=== PATIENT | male | born 1995 | race Caucasian/White ===

== ENCOUNTER 2019-07-04 19:56 | Emergency (ER) | payer BC, MEDICAID, OTHER ==
[2019-07-04 20:51] VITALS: BP 123/69; PULSE 106
--- NOTE | 2019-07-04 21:23 | EDM.PDOC ---
ED HPI GENERAL MEDICAL PROBLEM - General Chief Complaint: Respiratory Problem Stated Complaint: COUGH,FEVER,CHILLS Time Seen by Provider: 07/04/19 21:00 Source of Information: Reports: Patient, Family (significant other) History Limitations: Reports: No Limitations - History of Present Illness INITIAL COMMENTS - FREE TEXT/NARRATIVE: Alert 23 yo male presents to ER for cough, fever and lots of mucus for the last 2 weeks. Patient has had chills and sweats. He has not taken his temperature. patient took Ibuprofen last around 4:30 this am. Patient denies sore throat, headache, sinus pressure or rashes. He denies urinary symptoms or concerns. Patient's significant other and son have had a dry cough over the last week. Patient has had coughing fits at night and unable to sleep and cough is wet and very productive. Patient denies history of asthma or pneumonia. denies pain Pain Score (Numeric/FACES): 0 - Related Data Allergies Allergy/AdvReac Type Severity Reaction Status Date / Time venom-honey bee Allergy Hives Verified 07/04/19 21:18 [bee venom (honey bee)] Home Meds: Home Meds Doxycycline Hyclate 100 mg PO BID 10 Days #20 capsule 07/04/19 [Rx] Past Medical History - Past Health History Medical/Surgical History: Denies Medical/Surgical History Dermatologic History: Reports: Other (See Below) Other Dermatologic History: cuts on toes ED ROS GENERAL - Review of Systems Review Of Systems: ROS reveals no pertinent complaints other than HPI. ED EXAM, GENERAL - Physical Exam Exam: See Below Exam Limited By: No Limitations General Appearance: Alert, WD/WN, No Apparent Distress Eye Exam: Bilateral Eye: EOMI, PERRL Ears: Normal External Exam, Normal Canal, Hearing Grossly Normal, Normal TMs Nose: Normal Inspection, Normal Mucosa, No Blood, Nasal Drainage Throat/Mouth: Normal Inspection, Normal Lips, Normal Teeth, Normal Gums, Normal Oropharynx, Normal Voice, No Airway Compromise, Other (mucus noted in the posterior oral phayrnx ) Head: Normocephalic Neck: Normal Inspection, Supple, Non-Tender, Full Range of Motion Respiratory/Chest: No Respiratory Distress, Lungs Clear, Normal Breath Sounds, No Accessory Muscle Use Cardiovascular: Normal Peripheral Pulses, Regular Rate, Rhythm, No Edema, No Gallop, Tachycardia GI/Abdominal: Normal Bowel Sounds, Soft, Non-Tender Back Exam: Normal Inspection, Full Range of Motion. No: CVA Tenderness (R), CVA Tenderness (L) Extremities: Normal Inspection, Normal Range of Motion, Non-Tender, Normal Capillary Refill, No Pedal Edema Neurological: Alert, Oriented, CN II-XII Intact, Normal Cognition, Normal Gait, Normal Reflexes, No Motor/Sensory Deficits Psychiatric: Normal Affect, Normal Mood Skin Exam: Warm, Dry, Intact, Normal Color, No Rash Course - Vital Signs Last Recorded V/S: Last Vital Signs Temp 38.3 C H 07/04/19 21: Pulse 106 H 07/04/19 21:19 Resp 16 07/04/19 21: BP 123/69 07/04/19 21: Pulse Ox 95 07/04/19 21:19 - Radiology Interpretation Free Text/Narrative:: CXR PA/LAT: Left Lower Lobe Infiltrate noted on AP and Lateral views. Departure - Departure Time of Disposition: 21:51 Disposition: Home, Self-Care 01 Clinical Impression: Pneumonia of left lower lobe due to infectious organism - Discharge Information Prescriptions: Doxycycline Hyclate 100 mg PO BID 10 Days #20 capsule Instructions: Community-Acquired Pneumonia, Adult, Doxycycline tablets or capsules Referrals: PCP,None [Primary Care Provider] - Forms: ED Department Discharge Additional Instructions: 1. Doxycycline 100mg every am and pm x 10days for pneumonia. 2. Increase fluid intake, rest and sleep. 3. Call PCP for recheck in 72 hours if symptoms not improving recheck in 3-4 weeks to ensure resolved. 4. PCP office number given for follow recommendations.
--- NOTE | 2019-07-04 21:50 | CRLCR ---
INDICATION: Fever and cough TECHNIQUE: Chest radiograph 2 views COMPARISON: None FINDINGS: Mediastinum: The mediastinum is normal in appearance. The heart silhouette is normal in size and morphology. Lung: Small consolidation is seen in the lateral left lower lobe with small left pleural effusion. A small focal consolidation is present in the lingula measuring 1.8 cm. No pneumothorax is identified. Bone and Soft tissue: Unremarkable for age. IMPRESSION: 1. Small consolidation is seen in the lateral left lower lobe with small left pleural effusion. A small focal consolidation is present in the lingula measuring 1.8 cm. Findings are likely due to pneumonia. Dictated by Dae Can MD @ 07/04/2019 9:49:10 PM Dictated by: Dae Can MD @ 07/04/2019 21:49:14 (Electronically Signed)
== END 2019-07-04 22:11 | disposition home or self-care (01) ==
LOC: JP.ED 19:56
DX: J18.1 Lobar pneumonia, unspecified organism (principal); Z91.030 Bee allergy status
CPT/HCPCS: 71046; 99283

== ENCOUNTER 2021-09-17 08:36 | Emergency (ER) | payer BC, OTHER ==
[2021-09-17 08:53] VITALS: BP 129/82; PULSE 89
[2021-09-17] MEDS ORDERED: Aluminum Hydroxide/Magnesium Hydroxide/Simethicone Susp 30 ML Cup PO STA (09:03)
[2021-09-17] MEDS ORDERED: Famotidine 20 MG Tab PO ONE (09:03)
--- NOTE | 2021-09-17 09:04 | EDM.PDOC ---
ED HPI GENERAL MEDICAL PROBLEM - General Chief Complaint: Gastrointestinal Problem Stated Complaint: THREW UP THIS MORNING WITH BLOOD IN IT Time Seen by Provider: 09/17/21 08:45 Source of Information: Reports: Patient, Old Records, RN History Limitations: Reports: No Limitations - History of Present Illness INITIAL COMMENTS - FREE TEXT/NARRATIVE: 25 yo male presents after a single emesis this AM that appeared to contain a fair amt of blood. He denies any black or bloody stools. No pHx of peptic ulcer dz or family hx of same. He drinks moderately, but not heavily. Said he had 2 drinks only last night. He smokes only occasionally and does not use NSAID's. He feels fine now and is not dizzy with standing. He is not aware of any abdominal pain. He has not eaten or drank anything red in the last 12 hrs or so. Onset: Today, Sudden Onset Date: 09/17/21 Duration: Minutes:, Resolved Prior to Arrival Location: Reports: Abdomen Quality: Reports: Other (no pain) Improves with: Reports: Other (? time, feels fine now) Worsens with: Reports: Other (unknown) Context: Reports: Other (See HPI) Associated Symptoms: Reports: Nausea/Vomiting (now resolved) Treatments INVESTIGATION SPECIALIST: Reports: Other (see below) (none) - Related Data Allergies Allergy/AdvReac Type Severity Reaction Status Date / Time venom-honey bee Allergy Hives Verified 07/04/19 21:18 [bee venom (honey bee)] Home Meds: Home Meds Famotidine 20 mg PO BID #60 tablet 09/17/21 [Rx] Past Medical History - Past Health History Medical/Surgical History: Denies Medical/Surgical History Musculoskeletal History: Reports: Fracture, Other (See Below) Other Musculoskeletal History: left wrist fracture Neurological History: Reports: Concussion Dermatologic History: Reports: Other (See Below) Other Dermatologic History: cuts on toes - Past Surgical History HEENT Surgical History: Reports: Myringotomy w Tube(s), Tonsillectomy Social & Family History - Tobacco Use Tobacco Use Status *Q: Never Tobacco User - Caffeine Use Caffeine Use: Reports: Soda - Recreational Drug Use Recreational Drug Use: No ED ROS GENERAL - Review of Systems Review Of Systems: See Below Constitutional: Reports: No Symptoms HEENT: Reports: No Symptoms Respiratory: Reports: No Symptoms Cardiovascular: Reports: No Symptoms. Denies: Lightheadedness GI/Abdominal: Reports: Hematemesis, Nausea, Vomiting (x 1). Denies: Abdominal Pain, Black Stool, Bloody Stool : Reports: No Symptoms Musculoskeletal: Reports: No Symptoms Skin: Reports: No Symptoms ED EXAM, GI/ABD - Physical Exam Exam: See Below Exam Limited By: No Limitations General Appearance: Alert, WD/WN, No Apparent Distress Eyes: Bilateral: Normal Appearance Ears: Normal External Exam, Normal Canal, Hearing Grossly Normal Nose: Normal Inspection, No Blood Throat/Mouth: Normal Inspection, Normal Lips, Normal Oropharynx, Normal Voice, No Airway Compromise Head: Atraumatic, Normocephalic Neck: Normal Inspection Respiratory/Chest: No Respiratory Distress, Lungs Clear, Normal Breath Sounds, No Accessory Muscle Use Cardiovascular: Regular Rate, Rhythm, No Edema. No: Tachycardia GI/Abdominal Exam: Normal Bowel Sounds, Soft, Non-Tender, No Distention. No: Distended, Tender Back Exam: Normal Inspection. No: CVA Tenderness (R), CVA Tenderness (L) Extremities: Normal Inspection, Normal Range of Motion, Non-Tender, No Pedal Edema. No: Pedal Edema Neurological: Alert, Oriented, CN II-XII Intact, Normal Cognition, No Motor/Sensory Deficits Psychiatric: Normal Affect, Normal Mood Skin Exam: Warm, Dry, Intact, Normal Color, No Rash Course - Vital Signs Last Recorded V/S: Last Vital Signs Temp 36.7 C 09/17/21 08:50 Pulse 89 09/17/21 08:50 Resp 16 09/17/21 08:50 BP 129/82 09/17/21 08:50 Pulse Ox 98 09/17/21 08:50 - Orders/Labs/Meds Orders: Active Orders 24 hr Category Date Time Status Orthostatic Vital Signs [RC] ASDIRECTED Care 09/17/21 08:55 Active Labs: Laboratory Tests 09/17/21 09/17/21 Range/Units 08:55 09:00 WBC 7.3 (4.5-11.0) K/uL RBC 5.39 (4.30-5.90) M/uL Hgb 15.8 H (12.0-15.0) g/dL Hct 44.5 (40.0-54.0) % MCV 83 (80-98) fL MCH 29 (27-31) pg MCHC 36 (32-36) % Plt Count 222 (150-400) K/uL Sodium 141 (140-148) mmol/L Potassium 3.8 (3.6-5.2) mmol/L Chloride 104 (100-108) mmol/L Carbon Dioxide 27 (21-32) mmol/L Anion Gap 10.1 (5.0-14.0) mmol/L BUN 12 (7-18) mg/dL Creatinine 0.7 L (0.8-1.3) mg/dL Est Cr Clr Drug Dosing 169.46 mL/min Estimated GFR (MDRD) > 60 (>60) Glucose 99 (74-106) mg/dL Calcium 8.6 (8.5-10.1) mg/dL Meds: Medications Discontinued Medications Generic Name Dose Route Start Last Admin Trade Name Freq PRN Reason Stop Dose Admin Al Hydroxide/Mg Hydroxide 30 ml 09/17/21 09:03 09/17/21 09:17 Aluminum Hydroxide/Magnesium Hydroxide/Simethicone Susp 30 Ml Cup PO 09/17/21 09:04 30 ml NOW STA Administration Famotidine 20 mg 09/17/21 09:03 09/17/21 09:17 Famotidine 20 Mg Tab PO 09/17/21 09:04 20 mg ONETIME ONE Administration Departure - Departure Time of Disposition: 09:40 Disposition: Home, Self-Care 01 Condition: Fair Clinical Impression: Gastritis Qualifiers: Gastritis type: unspecified gastritis Chronicity: acute Gastritis bleeding: with bleeding Qualified Code(s): K29.01 - Acute gastritis with bleeding - Discharge Information *PRESCRIPTION DRUG MONITORING PROGRAM REVIEWED*: Not Applicable *COPY OF PRESCRIPTION DRUG MONITORING REPORT IN PATIENT MOJGAN: Not Applicable Prescriptions: Famotidine 20 mg PO BID #60 tablet Instructions: Gastritis, Adult, [id number] Referrals: PCP,None [Primary Care Provider] - Forms: ED Department Discharge Additional Instructions: Take famotidine every 12 hrs as directed. You may use acetaminophen if needed for pain or fever control, but do not use ibuprofen, Aleve, or aspirin. Avoid alcohol, tobacco, carbonated beverages or caffeine. Recheck with your doctor in the clinic within a week. Return if worse. Sepsis Event Note (ED) - Evaluation Sepsis Screening Result: No Definite Risk - Focused Exam Vital Signs: Vital Signs Temp Pulse Resp BP Pulse Ox 09/17/21 08:50 36.7 C 89 16 129/82 98 - My Orders Last 24 Hours: My Active Orders 09/17/21 08:55 Orthostatic Vital Signs [RC] ASDIRECTED - Assessment/Plan Last 24 Hours: My Active Orders 09/17/21 08:55 Orthostatic Vital Signs [RC] ASDIRECTED
== END 2021-09-17 09:46 | disposition home or self-care (01) ==
LOC: JP.ED 08:36
DX: K29.01 Acute gastritis with bleeding (principal); Z91.030 Bee allergy status; Z79.899 Other long term (current) drug therapy
CPT/HCPCS: 36415; 80048; 85027; 99284; A9270-GY

== ENCOUNTER 2022-04-28 22:33 | Emergency (ER) | payer BC ==
[2022-04-28 22:45] VITALS: BP 136/83; PULSE 86
[2022-04-28] MEDS: Ibuprofen 400 MG Tab PO ONE (23:26)
== END 2022-04-28 23:32 | disposition home or self-care (01) ==
LOC: JP.ED 22:33
DX: S20.222A Contusion of left back wall of thorax, initial encounter (principal); S00.03XA Contusion of scalp, initial encounter; S30.0XXA Contusion of lower back and pelvis, initial encounter; F17.210 Nicotine dependence, cigarettes, uncomplicated; Z91.030 Bee allergy status; W22.09XA Striking against other stationary object, initial encounter
CPT/HCPCS: 71046; 72170; 99284; A9270